=== PATIENT | female | born 1950 | race Caucasian/White ===

== ENCOUNTER 2017-12-20 15:07 | Outpatient (CLI) | payer BC ==
--- NOTE | 2017-12-20 15:43 | RAD ---
THREE VIEWS OF THE LEFT HAND 12/20/17 COMPARISON: None. HISTORY: Left hand osteoarthritis. FINDINGS: Three views of the left hand shows no evidence of acute fracture or dislocation. Moderate joint space narrowing and osteophyte formation seen in the first CMC joint. No other significant degenerative ch anges are seen. IMPRESSION: Moderate first CMC osteoarthritis. POS: [facility]
--- NOTE | 2017-12-20 15:44 | RAD ---
RIGHT HAND 3 VIEWS: HISTORY: Osteoarthritis. FINDINGS: Severe degenerative change of the thumb carpometacarpal joint. There are subcortical cysts of the me dial margin of the lunate. There is lateral subluxation of the thumb metacarpal phalangeal joint. IMPRESSION: 1. 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 2. Moderate osteoarthritic disease of the radiocarpal joint. POS: [facility]
--- NOTE | 2017-12-20 15:44 | BD ---
BONE DENSITOMETRY USING DEXA: Date: 12/20/17 HISTORY: Postmenopausal screening for osteoporosis. FINDINGS: Lumbar Spine: BMD (g/cm2) L1 1.050 T-Score: -0.5 Z-Score: 2.2 L2 1.076 T-Score: 0.4 Z-Score: 2.3 L3 1.036 T-Score: -0.4 Z-Score: 1.5 L4 0.835 T-Score: -2.1 Z-Score: 0.0 L1-L4 0.990 T-Score: -0.5 Z-Score: 1.4 Femoral Neck: 0.630 T-Score: -2.0 Z-Score: -0.3 Total Femur: 0.750 T-Score: -1.6 Z-Score: 0.2 The 10 year fracture risk for a major osteoporotic fracture is 11% and for a hip fracture is 1.7%. IMPRESSION: Osteopenia. POS: [facility]
== END 2017-12-20 15:08 | disposition home or self-care (01) ==
LOC: BICMAMMO 15:07
PROVIDERS: ATTEND Internal Medicine Rheumatology
DX: Z13.820 Encounter for screening for osteoporosis (principal); M81.0 Age-related osteoporosis without current pathological fracture; M18.0 Bilateral primary osteoarthritis of first carpometacarpal joints; M85.859 Other specified disorders of bone density and structure, unspecified thigh; Z87.828 Personal history of other (healed) physical injury and trauma
CPT/HCPCS: 77080

== ENCOUNTER 2018-12-03 12:51 | Outpatient (CLI) | payer MEDICARE ==
--- NOTE | 2018-12-03 13:28 | RAD ---
Exam: Chest 2 views HISTORY:Dyspnea Comparison: 01/07/2018 FINDINGS: Lungs: No masses or consolidation. Cardiac silhouette: Normal size Pulmonary vessels: Normal Pleural Spaces: Clear Pneumothorax: None Osseous abnormalities: None of acuity. IMPRESSION: No focal consolidation.
== END 2018-12-03 12:52 | disposition home or self-care (01) ==
LOC: RAD 12:51
PROVIDERS: ATTEND Internal Medicine Pulmonary Disease
DX: R06.00 Dyspnea, unspecified (principal)
CPT/HCPCS: 71046

== ENCOUNTER 2021-01-11 11:36 | Outpatient (CLI) | payer MEDICARE | END 2021-01-11 11:37 | disposition home or self-care (01) | LOC: SCSMRI 11:36 | PROVIDERS: ATTEND Nurse Practitioner Acute Care | DX: G43.909 Migraine, unspecified, not intractable, without status migrainosus (principal) | CPT/HCPCS: 70553; 82565 ==